=== PATIENT | female | born 1965 | race Caucasian/White ===

== ENCOUNTER 2018-03-05 19:49 | Inpatient (IN) | payer MEDICARE, MEDICAID ==
[~2018-03-05] VITALS: Ht 162.6 cm; Wt 85.0 kg
[2018-03-05 21:29] LABS: HEMATOCRIT. 34.3 % (36.0-48.0); HEMOGLOBIN. 11.3 g/dL (12.0-16.0); MEAN CORPUSCULAR HEMOGLOBIN 27.7 pg (28.0-32.0); MEAN CORPUSCULAR VOLUME 84.1 fL (81.0-99.0); MEAN PLATELET VOLUME 7.8 fl (7.4-10.4); PLATELET 202 x1000/uL (130-400); RED BLOOD CELL COUNT 4.08 mill/uL (4.2-5.4); RED CELL DISTRIBUTION WIDTH 14.7 % (11.6-14.6)
[2018-03-05 21:30] LABS: CHLORIDE 103 mEq/L (98-107)
[2018-03-05] MEDS ORDERED: ASPIRIN 81MG TABLET PO ONE (21:30)
[2018-03-05] MEDS ORDERED: VANCOMYCIN 1 G PREMIX 200 ML IV ONE (21:30)
[2018-03-05] MEDS ORDERED: PIPERACILLIN/TAZ 3.375G PREMIX 50 ML IV ONE (21:30)
[2018-03-05] MEDS ORDERED: SODIUM CHLORIDE 0.9% 1000ML BAG (SEPSIS BOLUS) IV ONE (21:30)
[2018-03-05 21:35] LABS: ETHANOL BLOOD < 10 mg/dL
[2018-03-05 21:47] LABS: INR 1.1; PROTHROMBIN TIME 10.9 sec (9.1-11.1)
[2018-03-05 21:49] LABS: PLATELET ESTIMATE NORMAL
[2018-03-05 22:25] LABS: D-DIMER > 35.20 mg/L FEU (<0.50)
[2018-03-05] MEDS ORDERED: NOREPINEPHRINE 4MG/250ML PMX 250 ML IV ONE (22:30)
[2018-03-06] VITALS (85 sets, daily range): BP systolic 68–144; BP diastolic 19–89
[2018-03-06 00:19] LABS: BG BASE EXCESS -4.5 mmol/L (-2.0-2.0); BG CARBOXYHEMOGLOBIN 2.1 % (0.5-1.5); BG DEOXYHEMOGLOBIN 2.9 % (0.0-5.0); BG FRACTION INSPIRED OXYGEN 28; BG HCO3 ACT 20.4 mmol/L (22.0-26.0); BG METHEMOGLOBIN 0.1 % (0.0-1.5); BG OXYHEMOGLOBIN 94.9 % (94.0-97.0); BG PCO2 37.2 mmHg (35.0-45.0); BG PH 7.358 (7.350-7.450); BG PO2 91.2 mmHg (75.0-100.0); BG SAMPLE SITE RIGHT RADIAL; BG TOTAL HEMOGLOBIN 10.7 g/dL (12.0-18.0); BG VENT MODE NASAL CANNULA
[2018-03-06] MEDS ORDERED: IOHEXOL-350 100 ML BOTTLE ONE (01:30)
[2018-03-06 02:02] LABS: CLARITY URINE TURBID (CLEAR); COLOR URINE ORANGE (YELLOW); KETONES URINE NEGATIVE (NEGATIVE); LEUKOCYTE ESTERASE URINE 3+ (NEGATIVE); NITRITE URINE NEGATIVE (NEGATIVE); OCCULT BLOOD URINE 3+ (NEGATIVE); PH URINE 5.5 (4.5-8.0); PROTEIN URINE 3+ (NEGATIVE); SPECIFIC GRAVITY URINE 1.016 (1.005-1.030)
[2018-03-06] MEDS: HYDROCODONE/ACETAMINOPHEN 5/325MG TABLET PO PRN ×4 (02:28→21:51)
[2018-03-06 02:29] LABS: *AMPHETAMINES SCREEN URINE NEGATIVE (NEGATIVE); *BARBITURATES SCREEN URINE NEGATIVE (NEGATIVE); *BENZODIAZEPINES SCREEN URINE NEGATIVE (NEGATIVE); *COCAINE SCREEN URINE NEGATIVE (NEGATIVE)
[2018-03-06] MEDS: SODIUM CHLORIDE 0.9% 1,000 ML IV SCH ×2 (02:29→23:22)
[2018-03-06 02:30] LABS: CANNABINOID URINE SCREEN PRESUMTIVE POSITIVE (NEGATIVE); METHADONE URINE SCREEN NEGATIVE (NEGATIVE); OPIATES URINE SCREEN PRESUMTIVE POSITIVE (NEGATIVE); PHENCYCLIDINE URINE SCREEN NEGATIVE (NEGATIVE)
[2018-03-06] MEDS ORDERED: NOREPINEPHRINE 8 MG in DEXT 5% WATER 242 ML IV PRN (02:30)
[2018-03-06] MEDS: CEFTRIAXONE 1 G PREMIX 50 ML IV SCH (03:19)
[2018-03-06 04:54] LABS: HEMATOCRIT. 31.8 % (36.0-48.0); HEMOGLOBIN. 10.4 g/dL (12.0-16.0); MEAN CORPUSCULAR HEMOGLOBIN 27.9 pg (28.0-32.0); MEAN CORPUSCULAR VOLUME 84.8 fL (81.0-99.0); MEAN PLATELET VOLUME 7.8 fl (7.4-10.4); PLATELET 215 x1000/uL (130-400); RED BLOOD CELL COUNT 3.75 mill/uL (4.2-5.4); RED CELL DISTRIBUTION WIDTH 14.7 % (11.6-14.6)
[2018-03-06] MEDS: AZITHROMYCIN 500 MG in DEXT 5% WATER 250 ML IV SCH (05:02)
[2018-03-06 05:13] LABS: CREATINE KINASE MB FRACTION 2.8 ng/mL (0.5-3.6)
[2018-03-06] MEDS ORDERED: TRAZ150T78 PO (06:45)
[2018-03-06] MEDS ORDERED: GABA800T97 PO (06:45)
[2018-03-06] MEDS ORDERED: HYDR-4009 MT (06:45)
[2018-03-06 07:01] LABS: PLATELET ESTIMATE NORMAL
[2018-03-06] MEDS ORDERED: PNEUMOCOCCAL 23-VAL P-SAC VAC 0.5 ML IM ONE (08:00)
[2018-03-06] MEDS: ENOXAPARIN 30MG/0.3ML SYR SUBCUT SCH (09:00)
[2018-03-06] MEDS ORDERED: DEXTROSE 50% WATER 50ML SYRINGE IV PRN (09:45)
[2018-03-06] MEDS ORDERED: INFLUENZA VIRUS VACCINE(AFLURIA) 0.5ML SYR IM ONE (10:00)
[2018-03-06] MEDS: NICOTINE 7MG PATCH TD SCH (10:46)
[2018-03-06] MEDS: BLOOD SUGAR DIAGNOSTIC STRIP TEST SCH ×3 (11:37→21:01)
[2018-03-06] MEDS: GABAPENTIN 400MG CAPSULE PO SCH ×3 (12:07→23:21)
[2018-03-06] MEDS: MIDODRINE HCL 5MG TABLET PO SCH ×2 (12:09→17:23)
[2018-03-06] MEDS: INSULIN LISPRO 100 UNITS/ML SUBCUT SCH ×3 (12:10→21:00)
[2018-03-06 12:32] LABS: CREATINE KINASE MB FRACTION 3.2 ng/mL (0.5-3.6)
[2018-03-06] MEDS ORDERED: LOSA50TA20 PO (18:31)
[2018-03-06] MEDS ORDERED: NAPR-1074 PO (18:31)
[2018-03-06] MEDS ORDERED: LISI-604 PO (18:31)
[2018-03-06] MEDS ORDERED: DULO40CA2 PO (18:31)
[2018-03-06] MEDS ORDERED: HYDR-4135 PO (18:31)
[2018-03-06] MEDS: TRAZODONE HCL 100MG TABLET PO SCH (21:51)
[2018-03-07] VITALS (48 sets, daily range): BP systolic 82–173; BP diastolic 52–107
[2018-03-07 00:31] LABS: CREATINE KINASE MB FRACTION 1.8 ng/mL (0.5-3.6)
[2018-03-07] MEDS: CEFTRIAXONE 1 G PREMIX 50 ML IV SCH (03:33)
[2018-03-07] MEDS: GABAPENTIN 400MG CAPSULE PO SCH ×3 (05:29→19:00)
[2018-03-07] MEDS: AZITHROMYCIN 500 MG in DEXT 5% WATER 250 ML IV SCH (05:29)
[2018-03-07 05:52] LABS: BASOPHILS % 0.3 % (0.0-2.0); EOSINOPHILS % 1.2 % (0.0-5.0); HEMATOCRIT. 31.5 % (36.0-48.0); HEMOGLOBIN. 10.6 g/dL (12.0-16.0); MEAN CORPUSCULAR HEMOGLOBIN 28.1 pg (28.0-32.0); MEAN CORPUSCULAR VOLUME 83.4 fL (81.0-99.0); MONOCYTES % 5.3 % (2.0-8.0); NEUTROPHILS % 84.2 % (40.0-76.0); PLATELET 194 x1000/uL (130-400); RED BLOOD CELL COUNT 3.78 mill/uL (4.2-5.4)
[2018-03-07] MEDS: INSULIN LISPRO 100 UNITS/ML SUBCUT SCH ×4 (06:21→20:57)
[2018-03-07] MEDS: BLOOD SUGAR DIAGNOSTIC STRIP TEST SCH ×4 (06:21→20:57)
[2018-03-07] MEDS: HYDROCODONE/ACETAMINOPHEN 5/325MG TABLET PO PRN ×2 (06:56→16:39)
[2018-03-07] MEDS ORDERED: DULO40CA2 PO (07:22)
[2018-03-07] MEDS ORDERED: DICL100G27 TP (07:23)
[2018-03-07] MEDS: MIDODRINE HCL 5MG TABLET PO SCH ×3 (08:16→18:59)
[2018-03-07] MEDS: NICOTINE 7MG PATCH TD SCH (08:16)
[2018-03-07] MEDS: ENOXAPARIN 30MG/0.3ML SYR SUBCUT SCH (08:16)
[2018-03-07] MEDS ORDERED: LIDOCAINE HCL 4% CREAM 76GM TUBE TP PRN (12:15)
[2018-03-07] MEDS: HYDROCODONE/ACETAMINOPHEN 10/325MG TABLET PO PRN ×2 (12:43→19:02)
[2018-03-07] MEDS: SODIUM CHLORIDE 0.9% 1,000 ML IV SCH (19:38)
[2018-03-07] MEDS: TRAZODONE HCL 100MG TABLET PO SCH (20:58)
[2018-03-07] MEDS: DULOXETINE HCL 20MG DR CAPSULE PO SCH (20:58)
[2018-03-08] VITALS (12 sets, daily range): BP systolic 112–151; BP diastolic 66–99
[2018-03-08] MEDS: HYDROCODONE/ACETAMINOPHEN 5/325MG TABLET PO PRN ×2 (01:50→23:20)
[2018-03-08] MEDS: GABAPENTIN 400MG CAPSULE PO SCH ×5 (01:55→23:19)
[2018-03-08] MEDS: CEFTRIAXONE 1 G PREMIX 50 ML IV SCH (04:22)
[2018-03-08] MEDS: AZITHROMYCIN 500 MG in DEXT 5% WATER 250 ML IV SCH (05:34)
[2018-03-08] MEDS: HYDROCODONE/ACETAMINOPHEN 10/325MG TABLET PO PRN ×3 (05:42→18:21)
[2018-03-08] MEDS: BLOOD SUGAR DIAGNOSTIC STRIP TEST SCH ×4 (07:28→21:10)
[2018-03-08 07:31] LABS: BASOPHILS % 0.1 % (0.0-2.0); HEMATOCRIT. 31.9 % (36.0-48.0); HEMOGLOBIN. 10.5 g/dL (12.0-16.0); LYMPHOCYTES % 13.7 % (20.0-50.0); MEAN CORPUSCULAR HEMOGLOBIN 27.4 pg (28.0-32.0); MEAN CORPUSCULAR VOLUME 82.9 fL (81.0-99.0); MEAN PLATELET VOLUME 7.6 fl (7.4-10.4); MONOCYTES % 6.2 % (2.0-8.0); PLATELET 179 x1000/uL (130-400); RED BLOOD CELL COUNT 3.85 mill/uL (4.2-5.4); RED CELL DISTRIBUTION WIDTH 14.9 % (11.6-14.6)
[2018-03-08] MEDS: INSULIN LISPRO 100 UNITS/ML SUBCUT SCH ×4 (08:00→21:00)
[2018-03-08] MEDS: MIDODRINE HCL 5MG TABLET PO SCH ×3 (08:47→17:00)
[2018-03-08] MEDS: NICOTINE 7MG PATCH TD SCH (08:47)
[2018-03-08] MEDS: DULOXETINE HCL 20MG DR CAPSULE PO SCH ×2 (08:47→21:10)
[2018-03-08] MEDS: ENOXAPARIN 30MG/0.3ML SYR SUBCUT SCH ×2 (09:00→21:09)
[2018-03-08] MEDS ORDERED: ENOXAPARIN 40MG/0.4ML SYR SUBCUT SCH (09:00)
[2018-03-08] MEDS: DIPHENHYDRAMINE 50MG/ML VIAL IV PRN ×2 (17:20→23:01)
[2018-03-08] MEDS: TRAZODONE HCL 100MG TABLET PO SCH (21:10)
[2018-03-09] VITALS (7 sets, daily range): BP systolic 128–156; BP diastolic 86–97
[2018-03-09] MEDS: CEFTRIAXONE 1 G PREMIX 50 ML IV SCH (03:48)
[2018-03-09] MEDS: HYDROCODONE/ACETAMINOPHEN 10/325MG TABLET PO PRN ×2 (03:53→10:11)
[2018-03-09] MEDS: AZITHROMYCIN 500 MG in DEXT 5% WATER 250 ML IV SCH (05:35)
[2018-03-09] MEDS: GABAPENTIN 400MG CAPSULE PO SCH ×2 (05:41→12:15)
[2018-03-09] MEDS: DIPHENHYDRAMINE 50MG/ML VIAL IV PRN ×2 (05:41→12:21)
[2018-03-09 06:29] LABS: BASOPHILS % 0.2 % (0.0-2.0); EOSINOPHILS % 7.8 % (0.0-5.0); HEMOGLOBIN. 10.2 g/dL (12.0-16.0); LYMPHOCYTES % 19.3 % (20.0-50.0); MEAN CORPUSCULAR HEMOGLOBIN 28.2 pg (28.0-32.0); MEAN CORPUSCULAR VOLUME 82.7 fL (81.0-99.0); MEAN PLATELET VOLUME 7.3 fl (7.4-10.4); MONOCYTES % 9.8 % (2.0-8.0); NEUTROPHILS % 62.9 % (40.0-76.0); PLATELET 164 x1000/uL (130-400); RED BLOOD CELL COUNT 3.63 mill/uL (4.2-5.4); RED CELL DISTRIBUTION WIDTH 14.7 % (11.6-14.6)
[2018-03-09] MEDS: BLOOD SUGAR DIAGNOSTIC STRIP TEST SCH ×2 (07:55→12:15)
[2018-03-09] MEDS: INSULIN LISPRO 100 UNITS/ML SUBCUT SCH ×2 (08:00→12:15)
[2018-03-09] MEDS: MIDODRINE HCL 5MG TABLET PO SCH ×2 (08:32→14:38)
[2018-03-09] MEDS: DULOXETINE HCL 20MG DR CAPSULE PO SCH (08:32)
[2018-03-09] MEDS: NICOTINE 7MG PATCH TD SCH (08:33)
[2018-03-09] MEDS: ENOXAPARIN 30MG/0.3ML SYR SUBCUT SCH (08:33)
[2018-03-09] MEDS ORDERED: METHYLPREDNISOLONE SOD SUCC 40 MG/ML VIAL IV NR (10:45)
[2018-03-09] MEDS ORDERED: LEVOFLOXACIN 250MG TABLET PO SCH (13:00)
[2018-03-09 13:06] LABS: HIV SCREEN 4G Non Reactive (Non Reactive)
== END 2018-03-09 17:00 | disposition home or self-care (01) | DRG 871 ==
LOC: ER 20:58 → MICUSO 23:18 → EDBEDREQSVC 23:20 → EDBEDREQ 23:20 → EDBEDREQTM 23:20 → ENRESERV 03-06 00:18 → MICUSO 03-06 11:25 → 5EST 03-07 14:21 → 5WST 03-09 11:27
PROVIDERS: ADMIT Internal Medicine Nephrology; ATTEND Internal Medicine Nephrology
PROC: 02HV33Z Insertion of Infusion Device into Superior Vena Cava, Percutaneous Approach (ICD-10-PCS; principal; 2018-03-05)
PROC: B548ZZA Ultrasonography of Superior Vena Cava, Guidance (ICD-10-PCS; 2018-03-05)
DX: A41.51 Sepsis due to Escherichia coli [E. coli] (principal); E43 Unspecified severe protein-calorie malnutrition; N17.0 Acute kidney failure with tubular necrosis; R65.21 Severe sepsis with septic shock; J18.9 Pneumonia, unspecified organism; N13.6 Pyonephrosis; J44.0 Chronic obstructive pulmonary disease with (acute) lower respiratory infection; N18.9 Chronic kidney disease, unspecified; D63.8 Anemia in other chronic diseases classified elsewhere; E66.9 Obesity, unspecified; I13.10 Hypertensive heart and chronic kidney disease without heart failure, with stage 1 through stage 4 chronic kidney disease, or unspecified chronic kidney disease; R55 Syncope and collapse; F17.210 Nicotine dependence, cigarettes, uncomplicated; R74.8 Abnormal levels of other serum enzymes; M54.9 Dorsalgia, unspecified; G89.29 Other chronic pain; R21 Rash and other nonspecific skin eruption; F12.90 Cannabis use, unspecified, uncomplicated; F32.9 Major depressive disorder, single episode, unspecified; E11.22 Type 2 diabetes mellitus with diabetic chronic kidney disease; Z68.32 Body mass index [BMI] 32.0-32.9, adult; Z79.899 Other long term (current) drug therapy; Z90.49 Acquired absence of other specified parts of digestive tract; Z71.6 Tobacco abuse counseling; Z71.3 Dietary counseling and surveillance; Z91.5 Personal history of self-harm
CPT/HCPCS: 36415; 36556; 36600; 71045; 71275; 74176; 80048; 80061; 80305; 82375; 82550; 82553; 82805; 82962; 83605; 83880; 84145; 84443; 84484; 85379; 87077; 87186; 87389; 90686; 90732; 93005; 93306; 96365; 99291; G0482; J0456; J0696; J1200; J1650; J1815; J2543; J2920; J3370; J3490; J7030; J7060; Q9967

== ENCOUNTER 2020-01-06 15:15 | Emergency (ER) | payer MEDICARE, MEDICAID ==
[~2020-01-06] VITALS: Ht 167.6 cm; Wt 91.0 kg
[~2020-01-06 15:15] MED LIST: DICL100G27 TP; DULO40CA2 PO; GABA800T97 PO; HYDR-4009 MT; HYDR-4135 PO; LISI-604 PO; LOSA50TA41 PO; NAPR-1074 PO; TRAZ150T78 PO
[2020-01-06] MEDS ORDERED: LORAZEPAM 1MG TABLET PO ONE (16:00)
[2020-01-06] MEDS ORDERED: OLANZAPINE 5MG TABLET ODT PO ONE (16:00)
[2020-01-06 17:19] LABS: CHLORIDE 105 mEq/L (98-107)
[2020-01-06 17:27] LABS: ETHANOL BLOOD < 10 mg/dL
[2020-01-06 17:52] LABS: CLARITY URINE CLOUDY (CLEAR); COLOR URINE YELLOW (YELLOW); KETONES URINE NEGATIVE (NEGATIVE); LEUKOCYTE ESTERASE URINE 1+ (NEGATIVE); NITRITE URINE POSITIVE (NEGATIVE); OCCULT BLOOD URINE TRACE (NEGATIVE); PH URINE 5.5 (4.5-8.0); PROTEIN URINE NEGATIVE (NEGATIVE); SPECIFIC GRAVITY URINE 1.019 (1.005-1.030)
[2020-01-06 18:00] LABS: BASOPHILS % 1.2 % (0.0-2.0); EOSINOPHILS % 1.9 % (0.0-5.0); HEMATOCRIT. 42.3 % (36.0-48.0); HEMOGLOBIN. 14.3 g/dL (12.0-16.0); LYMPHOCYTES % 30.1 % (20.0-50.0); MEAN CORPUSCULAR HEMOGLOBIN 27.2 pg (28.0-32.0); MEAN CORPUSCULAR VOLUME 80.6 fL (81.0-99.0); MEAN PLATELET VOLUME 6.9 fl (7.4-10.4); MONOCYTES % 7.2 % (2.0-8.0); NEUTROPHILS % 59.6 % (40.0-76.0); PLATELET 239 x1000/uL (130-400); RED BLOOD CELL COUNT 5.25 mill/uL (4.2-5.4); RED CELL DISTRIBUTION WIDTH 15.4 % (11.6-14.6)
[2020-01-06 18:01] LABS: *AMPHETAMINES SCREEN URINE PRESUMTIVE POSITIVE (NEGATIVE); *BARBITURATES SCREEN URINE NEGATIVE (NEGATIVE); *BENZODIAZEPINES SCREEN URINE NEGATIVE (NEGATIVE)
[2020-01-06 18:02] LABS: *COCAINE SCREEN URINE NEGATIVE (NEGATIVE); CANNABINOID URINE SCREEN PRESUMTIVE POSITIVE (NEGATIVE); METHADONE URINE SCREEN NEGATIVE (NEGATIVE); OPIATES URINE SCREEN PRESUMTIVE POSITIVE (NEGATIVE); PHENCYCLIDINE URINE SCREEN NEGATIVE (NEGATIVE)
[2020-01-06] MEDS ORDERED: LEVOFLOXACIN 500MG TABLET PO ONE (19:00)
[2020-01-07] MEDS ORDERED: TRAMADOL 50MG TABLET PO ONE (02:45)
[2020-01-07] MEDS ORDERED: HYDROXYZINE 25MG TABLET PO PRN (09:45)
[2020-01-07] MEDS ORDERED: TRAZODONE HCL 50MG TABLET PO PRN (09:45)
[2020-01-07] MEDS ORDERED: CITALOPRAM HYDROBROMIDE 10MG TABLET PO SCH (11:00)
[2020-01-07] MEDS ORDERED: LEVOFLOXACIN 500MG TABLET PO SCH (11:00)
[2020-01-07] MEDS: BUSPIRONE HCL 5MG TABLET PO SCH ×2 (11:23→17:00)
[2020-01-07] MEDS ORDERED: IBUPROFEN 800MG TABLET PO ONE (12:30)
[2020-01-07] MEDS ORDERED: BUSPIRONE HCL 10MG TABLET PO SCH (21:00)
[2020-01-08 00:47] VITALS: BP 131/78
== END 2020-01-08 00:50 | disposition home or self-care (01) ==
LOC: ER 15:28
DX: R45.851 Suicidal ideations (principal); F32.9 Major depressive disorder, single episode, unspecified; F15.129 Other stimulant abuse with intoxication, unspecified; N39.0 Urinary tract infection, site not specified; J44.9 Chronic obstructive pulmonary disease, unspecified; E11.9 Type 2 diabetes mellitus without complications; I10 Essential (primary) hypertension; Z90.49 Acquired absence of other specified parts of digestive tract; Z98.890 Other specified postprocedural states; Z79.899 Other long term (current) drug therapy; Y90.0 Blood alcohol level of less than 20 mg/100 ml
CPT/HCPCS: 36415; 71045; 80053; 80305; 80307; 80320; 80329; 81003; 84484; 85025; 93005; 99285; G0480

== ENCOUNTER 2021-09-22 13:42 | Emergency (ER) | payer MEDICARE, MEDICAID ==
[~2021-09-22] VITALS: Ht 162.6 cm; Wt 82.0 kg
[~2021-09-22 13:42] MED LIST changes: -DICL100G27 TP; +DICL100G32 TP; -LISI-604 PO; +LISI20TA31 PO
[2021-09-22 14:27] LABS: CLARITY URINE CLOUDY (CLEAR); COLOR URINE YELLOW (YELLOW); KETONES URINE TRACE (NEGATIVE); LEUKOCYTE ESTERASE URINE 1+ (NEGATIVE); NITRITE URINE POSITIVE (NEGATIVE); OCCULT BLOOD URINE TRACE (NEGATIVE); PH URINE 5.5 (4.5-8.0); PROTEIN URINE TRACE (NEGATIVE); SPECIFIC GRAVITY URINE 1.027 (1.005-1.030)
[2021-09-22 14:57] LABS: *AMPHETAMINES SCREEN URINE PRESUMTIVE POSITIVE (NEGATIVE); *BARBITURATES SCREEN URINE NEGATIVE (NEGATIVE); *BENZODIAZEPINES SCREEN URINE NEGATIVE (NEGATIVE); *COCAINE SCREEN URINE NEGATIVE (NEGATIVE); CANNABINOID URINE SCREEN PRESUMTIVE POSITIVE (NEGATIVE); METHADONE URINE SCREEN NEGATIVE (NEGATIVE); OPIATES URINE SCREEN NEGATIVE (NEGATIVE); PHENCYCLIDINE URINE SCREEN NEGATIVE (NEGATIVE)
[2021-09-22 15:03] LABS: BASOPHILS % 1.1 % (0.0-2.0); EOSINOPHILS % 4.2 % (0.0-5.0); HEMATOCRIT. 41.4 % (36.0-48.0); HEMOGLOBIN. 13.7 g/dL (12.0-16.0); LYMPHOCYTES % 27.8 % (20.0-50.0); MEAN CORPUSCULAR HEMOGLOBIN 25.8 pg (28.0-32.0); MEAN CORPUSCULAR VOLUME 77.9 fL (81.0-99.0); MONOCYTES % 9.6 % (2.0-8.0); NEUTROPHILS % 57.3 % (40.0-76.0); PLATELET 322 x1000/uL (130-400); RED BLOOD CELL COUNT 5.32 mill/uL (4.2-5.4); RED CELL DISTRIBUTION WIDTH 15.2 % (11.6-14.6)
[2021-09-22 15:07] LABS: CHLORIDE 106 mEq/L (98-107)
[2021-09-22 15:14] LABS: INR 0.9; PARTIAL THROMBOPLASTIN TIME 26.5 sec (23.4-31.0); PROTHROMBIN TIME 10.2 sec (9.6-11.0)
[2021-09-22 15:15] LABS: ETHANOL BLOOD < 10 mg/dL
[2021-09-22] MEDS ORDERED: CEFTRIAXONE SODIUM 1 G/VIAL IM ONE (15:30)
[2021-09-22] MEDS ORDERED: CEFTRIAXONE SODIUM 1 G/VIAL IM NR (15:30)
[2021-09-22] MEDS ORDERED: LORAZEPAM 1MG TABLET PO ONE (16:00)
[2021-09-22] MEDS ORDERED: OLANZAPINE 5MG TABLET PO SCH (16:00)
[2021-09-22] MEDS ORDERED: IBUPROFEN 800MG TABLET PO ONE (20:30)
[2021-09-23] MEDS ORDERED: NITR-87 MT (10:13)
[2021-09-23 10:58] VITALS: BP 153/95
== END 2021-09-23 11:00 | disposition home or self-care (01) ==
LOC: ER 13:56
DX: N39.0 Urinary tract infection, site not specified (principal); R45.851 Suicidal ideations; F41.9 Anxiety disorder, unspecified; F32.9 Major depressive disorder, single episode, unspecified; E11.9 Type 2 diabetes mellitus without complications; I10 Essential (primary) hypertension; Z98.890 Other specified postprocedural states; Z90.49 Acquired absence of other specified parts of digestive tract; Z79.899 Other long term (current) drug therapy; Z20.822 Contact with and (suspected) exposure to COVID-19
CPT/HCPCS: 36415; 80053; 80305; 80307; 80320; 80329; 81003; 82962; 85025; 85610; 85730; 87077; 87086; 87186; 96372; 99285; C9803; J0696; U0003; U0005; G0480